=== PATIENT | male | born 1930 | race Caucasian/White ===

== ENCOUNTER 2019-04-11 22:24 | Emergency (ER) | payer MEDICARE, BC ==
[~2019-04-11 22:24] MED LIST: ASPI81TA31 PO; ATENOLOL PO; ATOR10TA PO; Acetaminophen PO; CALC3.8S NS; HYDR-3326 PO; LEVOTHYROXINE PO; METH57CR13 TP; NIAC1000 PO; OLME5TAB3 PO; PANT40TA2 PO; PLAVIX PO
--- NOTE | 2019-04-11 22:54 | NUR ---
Patient left without being seen by ER physician.
== END 2019-04-11 22:56 | disposition left against medical advice (07) ==
LOC: ER 22:24
DX: Z53.21 Procedure and treatment not carried out due to patient leaving prior to being seen by health care provider (principal)